=== PATIENT | female | born 2000 | race Caucasian/White ===

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

== ENCOUNTER 2018-04-18 11:37 | Emergency (ER) | payer OTHER ==
[~2018-04-18] VITALS: Ht 157.5 cm; Wt 59.0 kg
[2018-04-18] MEDS ORDERED: FLUORESCEIN SOD(OPTH) 1 MG STRP ONE (12:10)
[2018-04-18] MEDS ORDERED: TETRACAINE HCL 0.5% OPTH SOLN 4 ML BTL ONE (12:10)
[2018-04-18] MEDS ORDERED: EYE IRRIGATION (OPTH) 120 ML BTL ONE (12:10)
[2018-04-18] MEDS ORDERED: SODIUM CHLORIDE 0.9% 1000ML 1,000 ML ONE ×2 (13:31→13:32)
[2018-04-18] MEDS ORDERED: SODIUM CHLORIDE 0.9% 1000ML 1,000 ML IV SCH ×3 (14:30)
[2018-04-18 15:37] VITALS: BP 134/81
== END 2018-04-18 15:15 | disposition short-term general hospital (02) ==
LOC: ER 11:37
DX: H57.12 Ocular pain, left eye (principal); H10.212 Acute toxic conjunctivitis, left eye; T54.3X1A Toxic effect of corrosive alkalis and alkali-like substances, accidental (unintentional), initial encounter; Y99.0 Civilian activity done for income or pay
CPT/HCPCS: 99284; J7030